=== PATIENT | female | born 1960 | race Caucasian/White ===

== ENCOUNTER 2023-06-15 09:23 | Inpatient (IN) | payer OTHER ==
[~2023-06-15] VITALS: Ht 172.7 cm; Wt 91.3 kg
[~2023-06-15 09:23] MED LIST: ATORVASTATIN CA40 MG PO; CEFADROXIL500 MG PO; ONDANSETRON HYDR4 MG PO; PHENERGAN 25 TA25 MG PO; PROTONIX TR40 M1 PO; SENNA-S 8.6-501 EACH PO; TYLENOL EXTRA500 M2 PO; XARELTO10 MG PO
[2023-06-15] MEDS ORDERED: AMOXICILLIN875 MG PO (09:51)
[2023-06-15] MEDS ORDERED: ALBUTEROL SULF6.7 GM IH (09:52)
[2023-06-15 10:02] LABS: BASO # 0.01 K/mm3 (0.02-0.10); HEMOGLOBIN 15.9 g/dL (12.5-16.0); LYMPH# 1.15 K/mm3 (1.50-4.00); MEAN CELL VOLUME 89 fl (78-100); MEAN CORPUSCULAR HEMOGLOBIN 31 pg (27-31); MEAN CORPUSCULAR HGB CONC 35 g/dL (33-37); NEU # 11.22 K/mm3 (1.40-6.50); PLATELET COUNT 422 K/mm3 (130-400); RED BLOOD COUNT 5.06 M/mm3 (4.10-5.30); RED CELL DISTRIBUTION WIDTH 13.2 % (11.5-14.5); WHITE BLOOD COUNT 13.3 K/mm3 (4.8-10.8)
[2023-06-15 10:14] LABS: ALBUMIN 4.3 g/dL (3.5-5.0)
[2023-06-15 10:15] LABS: CALCIUM 10.2 mg/dL (8.3-10.5)
[2023-06-15 10:17] LABS: TOTAL PROTEIN 7.4 g/dL (6.4-8.3)
[2023-06-15 10:18] LABS: TOTAL BILIRUBIN 0.6 mg/dL (0.2-1.2)
[2023-06-15 10:20] LABS: D-DIMER 0.44 mg/L FEU (0.15-0.50)
[2023-06-15 11:54] LABS: URINE APPEARANCE CLEAR (CLEAR); URINE COLOR YELLOW (YELLOW); URINE GLUCOSE NEGATIVE (NEGATIVE); URINE KETONE 4 (NEGATIVE); URINE PROTEIN(semi-quant) 2+ (NEGATIVE)
[2023-06-15 11:55] LABS: URINE BILIRUBIN 2+ (NEGATIVE); URINE BLOOD NEGATIVE (NEGATIVE); URINE LEUKOCYTE ESTERASE NEGATIVE (NEGATIVE); URINE NITRATE NEGATIVE (NEGATIVE); URINE WBC 0-1 /hpf (0-3)
[2023-06-15 14:21] VITALS: BP 132/72
[2023-06-15 18:03] LABS: CALCIUM 8.9 mg/dL (8.3-10.5)
--- NOTE | 2023-06-15 18:12 | NUR ---
Marleny Young APRN notified of critical lab values.
--- NOTE | 2023-06-15 18:17 | NUR ---
LR discontinued at this time per Marleny Young, [employer]
[2023-06-15 18:19] VITALS: BP 128/77
--- NOTE | 2023-06-15 19:00 | NUR ---
Report received from Nannette BRYAN.
--- NOTE | 2023-06-15 20:00 | NUR ---
Patient resting in bed and awakened for meds. Assisted 1 CGA without device to the bathroom and voids. Reports weakness and some shortness of breath with short distance. Undresses self slowly and nurse assists with sock on left foot "hx of left hip replacement". Alert and oriented x 4. Affect flat. Fall chart reviewed and updated with patient. Bed alarm on. Denies pain or needs at this time. Scheduled meds reviewed and given. Repeat BMP at 2300. IV potassium and fluids infuse without problems. Denies dizziness.
[2023-06-15 21:42] VITALS: BP 100/60
[2023-06-15 23:47] LABS: CALCIUM 8.9 mg/dL (8.3-10.5)
--- NOTE | 2023-06-15 23:58 | NUR ---
Mable HERRERA notified of critical carbon dioxide level of 14 and potassium level 3.3.
--- NOTE | 2023-06-16 00:15 | NUR ---
Patients accu check 76. Snack of vanilla ensure encouraged and given.
[2023-06-16 02:00] VITALS: BP 128/71
--- NOTE | 2023-06-16 05:15 | NUR ---
Patient given coke for snack and took several sips. Accu check 73.
[2023-06-16 05:29] VITALS: BP 118/57
--- NOTE | 2023-06-16 05:38 | NUR ---
Patient now resting soundly with eyes closed.
--- NOTE | 2023-06-16 06:02 | NUR ---
Mable HERRERA notified of patients last accu check of 73.
[2023-06-16 07:41] LABS: BASO # 0.01 K/mm3 (0.02-0.10); EOS # 0.01 K/mm3 (0.04-0.40); EOS % 0.1 % (1.0-5.0); HEMATOCRIT 37.9 % (37.0-47.0); HEMOGLOBIN 13.3 g/dL (12.5-16.0); LYMPH# 1.53 K/mm3 (1.50-4.00); MEAN CELL VOLUME 89 fl (78-100); MEAN CORPUSCULAR HEMOGLOBIN 31 pg (27-31); MEAN CORPUSCULAR HGB CONC 35 g/dL (33-37); MEAN PLATELET VOLUME 9.5 fl (7.4-10.4); MONO # 0.72 K/mm3 (0.20-0.80); NEU # 8.56 K/mm3 (1.40-6.50); PLATELET COUNT 368 K/mm3 (130-400); RED BLOOD COUNT 4.24 M/mm3 (4.10-5.30); RED CELL DISTRIBUTION WIDTH 13.6 % (11.5-14.5); WHITE BLOOD COUNT 10.9 K/mm3 (4.8-10.8)
[2023-06-16 08:08] LABS: ALBUMIN 3.6 g/dL (3.5-5.0)
[2023-06-16 08:09] LABS: CALCIUM 8.8 mg/dL (8.3-10.5)
[2023-06-16 08:12] LABS: TOTAL BILIRUBIN 0.4 mg/dL (0.2-1.2)
--- NOTE | 2023-06-16 08:30 | NUR ---
Joy Pepe PA-C notified of critical lab values.
[2023-06-16 10:01] VITALS: BP 114/72
[2023-06-16 11:13] LABS: URINE APPEARANCE CLOUDY (CLEAR); URINE COLOR YELLOW (YELLOW)
[2023-06-16 11:14] LABS: URINE BILIRUBIN 2+ (NEGATIVE); URINE BLOOD TRACE-INTACT (NEGATIVE); URINE GLUCOSE NEGATIVE (NEGATIVE); URINE KETONE 4+ (NEGATIVE); URINE LEUKOCYTE ESTERASE NEGATIVE (NEGATIVE); URINE NITRATE NEGATIVE (NEGATIVE); URINE PROTEIN(semi-quant) 1+ (NEGATIVE); URINE WBC >50 /hpf (0-3)
[2023-06-16 11:16] LABS: URINE MUCUS PRESENT (NOT PRESENT)
[2023-06-16 14:05] VITALS: BP 138/74
[2023-06-16 17:26] VITALS: BP 121/72
[2023-06-16 18:44] LABS: ALBUMIN 3.2 g/dL (3.5-5.0)
[2023-06-16 18:45] LABS: CALCIUM 8.5 mg/dL (8.3-10.5)
[2023-06-16 18:47] LABS: TOTAL PROTEIN 5.3 g/dL (6.4-8.3)
[2023-06-16 18:48] LABS: TOTAL BILIRUBIN 0.4 mg/dL (0.2-1.2)
[2023-06-16 21:59] VITALS: BP 129/78
[2023-06-17 01:17] VITALS: BP 106/67
[2023-06-17 05:36] VITALS: BP 119/69
[2023-06-17 05:49] LABS: CALCIUM 8.3 mg/dL (8.3-10.5); TOTAL BILIRUBIN 0.4 mg/dL (0.2-1.2)
--- NOTE | 2023-06-17 07:00 | NUR ---
RESUMED CARE FROM RANDI PARIKH.
[2023-06-17 10:15] VITALS: BP 112/72
--- NOTE | 2023-06-17 10:27 | NUR ---
Patient resting in chair with iv fluids infusing. denies pain, assessment completed, potasssium level reported to joseph CARMICHAEL, provider in to see patient at this time. Call light in reach
[2023-06-17 10:40] LABS: BASO # 0.01 K/mm3 (0.02-0.10); EOS # 0.03 K/mm3 (0.04-0.40); EOS % 0.4 % (1.0-5.0); HEMATOCRIT 36.1 % (37.0-47.0); HEMOGLOBIN 12.7 g/dL (12.5-16.0); LYMPH# 1.49 K/mm3 (1.50-4.00); MEAN CELL VOLUME 90 fl (78-100); MEAN CORPUSCULAR HEMOGLOBIN 32 pg (27-31); MEAN CORPUSCULAR HGB CONC 35 g/dL (33-37); MEAN PLATELET VOLUME 9.7 fl (7.4-10.4); MONO # 0.57 K/mm3 (0.20-0.80); NEU # 5.67 K/mm3 (1.40-6.50); PLATELET COUNT 210 K/mm3 (130-400); RED BLOOD COUNT 4.03 M/mm3 (4.10-5.30); RED CELL DISTRIBUTION WIDTH 13.6 % (11.5-14.5); WHITE BLOOD COUNT 7.8 K/mm3 (4.8-10.8)
[2023-06-17 10:47] LABS: ALBUMIN 3.1 g/dL (3.5-5.0)
[2023-06-17 10:49] LABS: CALCIUM 8.6 mg/dL (8.3-10.5)
[2023-06-17 10:50] LABS: TOTAL PROTEIN 5.3 g/dL (6.4-8.3)
[2023-06-17 10:52] LABS: TOTAL BILIRUBIN 0.4 mg/dL (0.2-1.2)
[2023-06-17 10:57] LABS: MAGNESIUM 1.53 mg/dL (1.60-2.60)
--- NOTE | 2023-06-17 12:03 | NUR ---
D5 FLUIDS SWITCHED TO R FOREARM. RN NOTIFIED.
[2023-06-17 13:46] VITALS: BP 100/68
[2023-06-17 17:49] VITALS: BP 137/73
--- NOTE | 2023-06-17 19:24 | NUR ---
REPORT TO RANDI HOFFMAN.
--- NOTE | 2023-06-17 19:50 | NUR ---
ENTERED PT ROOM WITH MEDICATION PT REQUEST THAT THE LARGE PILLS BE BROKE IN HALF. CARAFATE AND PHOSPHORUS WERE BROKE IN 1/2 FOR PT. AFTER 10 MINUTES PT WAS ABLE TO SWALLOW 1 LIPITOR AND 1/2 OF THE BROKEN PILLS. PT IS OBSERVED GAGGING AND SPITTING OUT WATER BUT NOT THE MEDICATIONS. PT THEN REQUEST PILLS BE CRUSHED.
--- NOTE | 2023-06-17 20:00 | NUR ---
PT HAS BEEN TRYING TO SWALLOW MEDS AFTER 10 MINUTES PT HAS SWALLOWED 1 LIPITOR AND 1/2 OF ANOTHER PILL. PT REQUEST MEDS BE CRUSHED AND BE PUT IN APPLESAUCE. MEDS WERE CRUSHED AND MIXED WITH A SMALL AMOUT OF APPLESAUCE. pt TAKES MEDICATION AND PUT MORE APPLESAUCE IN WITH THE PILLS. pT TAKES 2-3 BITES AND THE STARTS TO MAKE GAGING SOUNDS AND THE STARTES SPITTING OUT WATER AND PILLS AFTER 10 MINUTES OF TRYING TO TAKE MEDICATION PT THEN STATES SHE CAN NO LONGER TRY TO TAKE THESE PILLS SHE "HAS HAD TOO MANY PILLS TODAY", SHE STATES "NEWTON TOLD ME I DIDNT HAVE TO TAKE ANYMORE PILLS TODAY." ATTEMP-JUNITO TO EXPLAINE THAT MEDICATIONS WERE ORDERED MULTIPUL TIMES A DAY AND THAT IS WHY IT SEEMS SHE HAS HAD SO MANY TODAY. PT REFUSES TO TAKE ANY MORE MEDICATIONS AT THIS TIME, AND REQUEST THEY JUST BE "THROWN AWAY" BECAUSE SHE " HAS HAD ENOUGH"
[2023-06-17 21:36] VITALS: BP 140/81
[2023-06-17 22:07] LABS: MAGNESIUM 1.81 mg/dL (1.60-2.60)
--- NOTE | 2023-06-18 01:18 | NUR ---
PT REQUEST TYLENOL FOR BILATERAL FEET PAIN, REPORTS PAIN A NUMB TINGLING FEELING. ATTEMPTED TO EDUCATE PT ON DIFFERENT STRECHS AND MOVEMENT SHE COULD DO LAYING IN BED TO ASSIT WITH THE DISCOMFORT. PT STATES SHE JUST WANTS TYLENOL. EXPLAINED TO PT THAT TYLNOL WOULD BE PROVIDED BUT MOVING HER FEET MIGHT HELP WITH THE PAIN ALSO. PT WAS GIVEN TYLENOL 650MG THAT SHE WAS ABLE TO SWALLOW THE PILLS WITHOUT ANY DIFFICULTIES.
[2023-06-18 01:45] VITALS: BP 117/74
--- NOTE | 2023-06-18 02:10 | NUR ---
PT REPORTS PAIN IS GETTING BETTER.
--- NOTE | 2023-06-18 03:35 | NUR ---
WHILE IN ROOM HANGING A NEW BAG OF IV FLUIDS PT REPORTS PAIN WAS GONE WHILE SHE WAS ASLEEP BUT NOW THAT SHE IS AWAKE HER PAIN IS STARTING TO COME BACK. REASSURED PT THAT WHEN SHE IS ABLE TO HAVE MORE TYLENOL IT WOULD BE PROVIDED IF SHE STILL NEEDED IT.
[2023-06-18 05:31] VITALS: BP 111/70
--- NOTE | 2023-06-18 05:45 | NUR ---
CARAFATE WAS GIVEN OFFERED PT TO MAKE IT INTO A SLURRY SO SHE DIDNT HAVE TO TRY TO SWALLOW THE 2 HALF OF THE PILL. PT REFUSED AND STATED THAT SHE WOULD SWALLOW THE PILLS.
--- NOTE | 2023-06-18 10:00 | NUR ---
Pt sitting up in the chair, reports bilateral foot shooting pain since yesterday. Pt reports that the tylenol given last night "took the edge off" asked if she would like to try another medication patient reports that she "will think about it." Pt sitting in recliner watching TV. Pt reports that she can swallow though sometimes it feels like pills are stuck, but that the problem is more so that she gets nauseous if she eats or drinks anything and medications havent helped. ERP notified and aware. Call light within reach. Denies other needs at this time. Pt declines meal supplement at this time, reports that she will try this afternoon.
[2023-06-18 10:10] VITALS: BP 113/73
--- NOTE | 2023-06-18 11:24 | NUR ---
Warm blanket offered and accepted. Call light in reach. Denies other needs at this time.
--- NOTE | 2023-06-18 14:00 | NUR ---
PER TECH CRYSTAL PT CONSUMED 67ML OF SHAKE.
[2023-06-18 14:15] VITALS: BP 109/70
--- NOTE | 2023-06-18 15:38 | NUR ---
fluids and potassium infusion stopped to allow patient to shower per request. ERP notifed pt reports burning for potassium. Due to incompatability of D5LR will run potassium infusion and then continue fluids afterwards per ERP verbal order.
[2023-06-18] MEDS ORDERED: NORVASC 10MG10 MG PO (15:50)
[2023-06-18] MEDS ORDERED: ASPIRIN E.C. 8181 MG PO (15:52)
[2023-06-18] MEDS ORDERED: CELECOXIB100 M1 PO (15:53)
[2023-06-18] MEDS ORDERED: CARBIDOPA AND L1 OD1 PO (15:53)
[2023-06-18] MEDS ORDERED: VITAMIN D325 MC7 PO (15:54)
[2023-06-18] MEDS ORDERED: [UNRECOGNIZED DRUG - OTHER] PO (15:55)
[2023-06-18] MEDS ORDERED: FEXOFENADINE H180 M1 PO (15:55)
[2023-06-18] MEDS ORDERED: MIRALAX17 GM PO (15:56)
[2023-06-18] MEDS ORDERED: MULTIVITAMIN1 EACH PO (15:56)
[2023-06-18] MEDS ORDERED: OMEPRAZOLE20 M3 PO (15:57)
[2023-06-18] MEDS ORDERED: OMEGA-31000 M1 PO (15:57)
[2023-06-18] MEDS ORDERED: DESYREL 100MG100 MG PO (15:58)
[2023-06-18] MEDS ORDERED: TOPAMAX25 MG PO (15:58)
[2023-06-18] MEDS ORDERED: TRIAMCINOLONE ACETON (16:00)
[2023-06-18] MEDS ORDERED: TYLENOL325 M1 PO (16:00)
[2023-06-18] MEDS ORDERED: VOLTAREN 1% (16:02)
--- NOTE | 2023-06-18 17:00 | NUR ---
Pt reports feeling better after a shower, pt reports that the burning has subsided. This RN notifies patient that we need a UA the next time she needs to urinate.
[2023-06-18 18:15] VITALS: BP 124/78
--- NOTE | 2023-06-18 18:39 | NUR ---
MEAL REPLACMENT SHAKE OFFERED TO PATIENT.
--- NOTE | 2023-06-18 18:40 | NUR ---
PT SITTING IN CHAIR, WATCHING TV AT THIS TIME, CALL LIGHT WITHIN REACH.
--- NOTE | 2023-06-18 18:58 | NUR ---
REPORT TO RANDI JACQUES
--- NOTE | 2023-06-18 19:00 | NUR ---
Report received from Aparna BRYAN.
[2023-06-18 19:22] LABS: CALCIUM 8.6 mg/dL (8.3-10.5)
[2023-06-18 20:52] LABS: PH-URINE 5.5 (5.0 - 8.0); URINE APPEARANCE SLIGHTLY CLOUDY (CLEAR); URINE BILIRUBIN 2+ (NEGATIVE); URINE COLOR DARK YELLOW (YELLOW); URINE GLUCOSE NEGATIVE (NEGATIVE); URINE KETONE 2+ (NEGATIVE); URINE NITRATE NEGATIVE (NEGATIVE); URINE PROTEIN(semi-quant) 1+ (NEGATIVE)
[2023-06-18 20:53] LABS: URINE BLOOD TRACE-INTACT (NEGATIVE); URINE LEUKOCYTE ESTERASE NEGATIVE (NEGATIVE)
[2023-06-18 20:54] LABS: URINE MUCUS PRESENT (NOT PRESENT)
--- NOTE | 2023-06-18 21:00 | NUR ---
Patient resting in bed. Reviewed new orders for potassium po/IV. IVF's DC'd. HS meds reviewed and given. Takes 1 tablet slowly at a time without problems. Tylenol given per request for bilateral feet and toe pain. Reviewed Mable HERRERA will order her tramadol if requires stronger pain med. Reviewed with Mable HERRERA hung NS at 50mls to run concurrent with IV potassium due to patient report of burning at IV site.
[2023-06-18 21:51] VITALS: BP 120/78
--- NOTE | 2023-06-19 | NUR ---
Rests with eyes closed.
[2023-06-19 01:40] VITALS: BP 108/58
--- NOTE | 2023-06-19 02:30 | NUR ---
Reports bilateral feet pain 10/10 again and requests tylenol. Given. Denies need for stronger med at this time and will report need to nurse.
--- NOTE | 2023-06-19 04:17 | NUR ---
Patient awake repositions self. Denies pain.
[2023-06-19 06:07] VITALS: BP 121/72
--- NOTE | 2023-06-19 06:21 | NUR ---
Patient resting awake in bed visiting on phone. Reports 8/ pain to feet and requests tylenol. Given. Has had kpad to feet legs off and on through the night and states it helps. States "yes I did" to getting sleep this noc.
[2023-06-19 07:44] LABS: ALBUMIN 2.9 g/dL (3.5-5.0)
[2023-06-19 07:45] LABS: CALCIUM 8.2 mg/dL (8.3-10.5)
[2023-06-19 07:47] LABS: TOTAL PROTEIN 4.8 g/dL (6.4-8.3)
[2023-06-19 07:48] LABS: TOTAL BILIRUBIN 0.3 mg/dL (0.2-1.2)
[2023-06-19 07:54] LABS: MAGNESIUM 1.6 mg/dL (1.60-2.60)
[2023-06-19 09:57] VITALS: BP 97/53
--- NOTE | 2023-06-19 13:35 | NUR ---
PT BACK FROM RADIOLOGY BARIUM SWALLOW STUDY. TOLERATED WELL, SPEECH THERAPY AT BEDSIDE.
[2023-06-19 14:20] VITALS: BP 107/62
[2023-06-19 18:23] VITALS: BP 127/76
--- NOTE | 2023-06-19 19:00 | NUR ---
Report received from Malena Arnold RN.
--- NOTE | 2023-06-19 20:00 | NUR ---
Patient CGA with walker to the bathroom. Gait steady but awkward. Voids and does HS care at sink. HS meds all reviewed and taken 1 at a time without problems along with tylenol for feet and toe pain. BLE elevated. Alert and oriented x 4.
[2023-06-19 21:35] VITALS: BP 117/53
[2023-06-20 02:41] VITALS: BP 111/77
[2023-06-20 05:25] VITALS: BP 112/64
--- NOTE | 2023-06-20 06:24 | NUR ---
PATIENT REPORTS SHE SLEPT WELL FOLLOWING NEURONTIN GIVEN EARLIER.
--- NOTE | 2023-06-20 07:00 | NUR ---
Report received from RANDI Guy.
[2023-06-20 09:34] LABS: ALBUMIN 3.9 g/dL (3.5-5.0)
[2023-06-20 09:36] LABS: CALCIUM 9.2 mg/dL (8.3-10.5)
[2023-06-20 09:37] LABS: TOTAL PROTEIN 5.7 g/dL (6.4-8.3)
[2023-06-20 09:39] LABS: TOTAL BILIRUBIN 0.4 mg/dL (0.2-1.2)
[2023-06-20 09:47] LABS: BASO # 0.01 K/mm3 (0.02-0.10); EOS # 0.22 K/mm3 (0.04-0.40); EOS % 4.2 % (1.0-5.0); HEMATOCRIT 43.8 % (37.0-47.0); LYMPH# 1.56 K/mm3 (1.50-4.00); MEAN CELL VOLUME 92 fl (78-100); MEAN CORPUSCULAR HEMOGLOBIN 31 pg (27-31); MEAN CORPUSCULAR HGB CONC 34 g/dL (33-37); MEAN PLATELET VOLUME 9.1 fl (7.4-10.4); MONO # 0.51 K/mm3 (0.20-0.80); NEU # 2.94 K/mm3 (1.40-6.50); PLATELET COUNT 290 K/mm3 (130-400); RED BLOOD COUNT 4.77 M/mm3 (4.10-5.30); RED CELL DISTRIBUTION WIDTH 13.6 % (11.5-14.5); WHITE BLOOD COUNT 5.3 K/mm3 (4.8-10.8)
--- NOTE | 2023-06-20 10:00 | NUR ---
Assessment charted. Pt resting in chair at s sarahy of bed, pain to feet bilaterally 4/10 but wants to wait until after lunch to take some gabapentin. Lungs diminished at bases. States she feels a bit confused today but oriented. Denies needs, will continue to monitor.
[2023-06-20 10:18] VITALS: BP 110/77
--- NOTE | 2023-06-20 12:18 | NUR ---
Called PT/OT and asked to evaluate patient, orders placed on Friday and it is now Friday. Per OT note, not evaluated due to low potassium levels. AMOL Stone notified.
[2023-06-20] MEDS ORDERED: TYLENOL PM EXTR1 TA1 PO (13:14)
[2023-06-20 13:58] VITALS: BP 132/76
[2023-06-20 18:04] VITALS: BP 127/78
--- NOTE | 2023-06-20 18:54 | NUR ---
Will give report to nightshift nurse who will resume care.
[2023-06-20 22:00] VITALS: BP 142/64
--- NOTE | 2023-06-20 22:35 | NUR ---
PT WAS IN RECLINER. REPORTED THAT HER FEET WERE HURTING, 8/10. MEDICATIONS TAKEN PO WITHOUT DIFFICULTY. ASSESSMENT COMPLETE. IV FLUSHED, STATED THAT THERE WAS SLIGHT BURNING WITH IT. COBAN APPLIED. CALL LIGHT WITHIN REACH.
[2023-06-21 02:16] VITALS: BP 100/59
[2023-06-21 05:52] VITALS: BP 100/66
[2023-06-21 09:50] VITALS: BP 108/71
--- NOTE | 2023-06-21 10:00 | NUR ---
PT FOUND UPSET THIS MORNING. REPORTS THAT SHE WANTS TO KNOW A UPDATE ON HER INSURANCE SITUATION AND IF THE STAY IS COVERED. THIS RN REACHES OUT TO [facility], REPORTS UNKNOWN AT THIS TIME DUE TO INSURANCE STATES STILL PENDING APPROVAL. LARA TERESA, CONTACTED ABOUT SITUATION. PT NOTIFIED OF CURRENT STATUS. PT TEARFUL, REPORTS THAT SHE CANT AFFORD OUT OF POCKET COSTS AND THAT SHE WOULD LIKE TO LEAVE. THIS RN REPORTS CONCERN OF MAKING IT TO APT ON FRIDAY FOR EGD PT REPORTS THAT SHE DOES NOT HAVE A RIDE. PT REPORTS THAT HER SISTER IS ON THE WAY AND MIGHT BE ABLE TO HELP. THIS RN ALSO EXPRESSES CONCERN ABOUT FALLING IF PT FEELS WEAK DUE TO INADEQUATE INTAKE AND IF CHOOSES TO LEAVE THE HOSPTIAL TO BE VERY CAREFUL AND SAFE WITH AMBULATION, PT VERBALIZES UNDERSTANDING. ERP NOTIFIED OF SITUATION AND TO COME TO BEDSIDE TO SPEAK WITH PT.
--- NOTE | 2023-06-21 11:54 | NUR ---
ERP AT BEDSIDE SPEAKING TO PATIENT AND SISTER.
--- NOTE | 2023-06-21 12:05 | NUR ---
ERP RETURNS TO ROOM AFTER MAKING PHONE CALLS TO SOCIAL WORK.L
[2023-06-21] MEDS ORDERED: GABAPENTIN TAB600 MG PO (12:11)
[2023-06-21] MEDS ORDERED: CARAFATE 1GM1 G PO (12:11)
[2023-06-21] MEDS ORDERED: PANTOPRAZOLE SO40 MG PO (12:12)
[2023-06-21] MEDS ORDERED: Theragran PO (12:14)
[2023-06-21] MEDS ORDERED: B-1100 M1 PO (12:14)
[2023-06-21] MEDS ORDERED: FOLIC ACID1 MG PO (12:14)
[2023-06-21] MEDS ORDERED: POTASSIUM CHLO20 ME3 PO (12:27)
--- NOTE | 2023-06-21 13:03 | NUR ---
ALL DISCHARGE, MEDICATION, AND FOLLOW UP INSTRUCTIONS REVIEWED WITH PATIENT, VERBALIZES UNDERSTANDING. PT DENIES ANY ADDITIONAL QUESTIONS AT THIS TIME. PT BELONGINGS PACKED PER PT AND TECH AND READY FOR DISCHARGE. ALL BELONGINGS TO BE TAKEN UPON DISCHARGE. AWAITING PTS SISTER FOR TRANSPORT FROM THE FACILITY AT THIS TIME. PT NOTIFIED OF INSTRUCTIONS TO CHECK IN AT 1045 FRIDAY MORNING FOR EGD AND TO REMAIN NPO OF ALL FLUIDS/FOOD/MEDS AFTER MIDNIGHT TOMORROW NIGHT IN PREPERATION FOR THE EGD.
--- NOTE | 2023-06-21 13:18 | NUR ---
PT SISTER RETURNES, PT WHEELED OUT TO POV FOR DISCHARGE.
== END 2023-06-21 13:19 | disposition home or self-care (01) | DRG 922 ==
LOC: ED 09:23 → MED/SURG 12:17
PROVIDERS: Nurse Practitioner; Physician Assistant; ADMIT Family Medicine
DX: T73.0XXA Starvation, initial encounter (principal); E43 Unspecified severe protein-calorie malnutrition; J18.9 Pneumonia, unspecified organism; E87.6 Hypokalemia; E83.42 Hypomagnesemia; E83.39 Other disorders of phosphorus metabolism; K59.09 Other constipation; R63.0 Anorexia; R63.4 Abnormal weight loss; E86.0 Dehydration; X58.XXXA Exposure to other specified factors, initial encounter; Z96.642 Presence of left artificial hip joint; Z90.49 Acquired absence of other specified parts of digestive tract
CPT/HCPCS: C9113; J0456; J0696; J2405; J3411; J3475; J3480; J3490; J7030; J7042; J7050; J7120; J7121; P9047; Q9967

== ENCOUNTER → 2023-06-23 | Day surgery (SDC) | payer OTHER ==
[~2023-06-23] MED LIST changes: +ALBUTEROL SULF6.7 GM IH; +AMOXICILLIN875 MG PO; +ASPIRIN E.C. 8181 MG PO; +B-1100 M1 PO; +CARAFATE 1GM1 G PO; +CARBIDOPA AND L1 OD1 PO; +CELECOXIB100 M1 PO; +DESYREL 100MG100 MG PO; +FEXOFENADINE H180 M1 PO; +FOLIC ACID1 MG PO; +GABAPENTIN TAB600 MG PO; +MIRALAX17 GM PO; +MULTIVITAMIN1 EACH PO; +NORVASC 10MG10 MG PO; +OMEGA-31000 M1 PO; +OMEPRAZOLE20 M3 PO; +PANTOPRAZOLE SO40 MG PO; +POTASSIUM CHLO20 ME3 PO; +TOPAMAX25 MG PO; +TRIAMCINOLONE ACETON; +TYLENOL PM EXTR1 TA1 PO; +TYLENOL325 M1 PO; +Theragran PO; +VITAMIN D325 MC7 PO; +VOLTAREN 1%; +[UNRECOGNIZED DRUG - OTHER] PO
== END ==
LOC: MSO 07:30
DX: K29.70 Gastritis, unspecified, without bleeding (principal); K31.89 Other diseases of stomach and duodenum; E78.5 Hyperlipidemia, unspecified
CPT/HCPCS: 00731; J2704; J3010; J7120

== ENCOUNTER → 2023-06-26 | Outpatient (CLI) | payer OTHER ==
[2023-06-26 14:53] LABS: HEMATOCRIT 43.1 % (37.0-47.0); HEMOGLOBIN 14.2 g/dL (12.5-16.0); MEAN PLATELET VOLUME 9.1 fl (7.4-10.4); RED BLOOD COUNT 4.49 M/mm3 (4.10-5.30); WHITE BLOOD COUNT 8.2 K/mm3 (4.8-10.8)
[2023-06-26 15:00] LABS: ALBUMIN 3.7 g/dL (3.5-5.0)
[2023-06-26 15:02] LABS: CALCIUM 8.9 mg/dL (8.3-10.5)
[2023-06-26 15:05] LABS: TOTAL BILIRUBIN 0.4 mg/dL (0.2-1.2)
== END ==
LOC: LAB 14:09
PROVIDERS: Family Medicine
DX: R62.7 Adult failure to thrive (principal); M79.89 Other specified soft tissue disorders

== ENCOUNTER → 2023-07-10 | Outpatient (CLI) | payer OTHER ==
[2023-07-10 09:15] LABS: ALBUMIN 3.9 g/dL (3.5-5.0)
[2023-07-10 09:17] LABS: CALCIUM 9.2 mg/dL (8.3-10.5)
[2023-07-10 09:18] LABS: TOTAL PROTEIN 6.2 g/dL (6.4-8.3)
[2023-07-10 09:20] LABS: TOTAL BILIRUBIN 0.5 mg/dL (0.2-1.2)
[2023-07-10 09:24] LABS: MAGNESIUM 1.76 mg/dL (1.60-2.60)
== END ==
LOC: LAB 08:39
PROVIDERS: Family Medicine
DX: R62.7 Adult failure to thrive (principal)

== ENCOUNTER 2023-09-25 12:15 | Inpatient (IN) | payer OTHER ==
[~2023-09-25] VITALS: Ht 170.2 cm; Wt 71.6 kg
[2023-09-25] MEDS ORDERED: LEXAPRO 10MG10 MG PO (14:23)
[2023-09-25] MEDS ORDERED: LASIX20 M1 PO (14:24)
[2023-09-25] MEDS ORDERED: [UNRECOGNIZED DRUG - OTHER] OP (14:25)
[2023-09-25] MEDS ORDERED: MIRTAZAPINE7.5 M1 PO (14:25)
[2023-09-25] MEDS ORDERED: ONDANSETRON HYDR4 MG PO (14:26)
[2023-09-25] MEDS ORDERED: NEURONTIN300 M1 PO (14:36)
[2023-09-25] MEDS ORDERED: TOBRAMYCIN 5 ML5 ML OP (14:37)
[2023-09-25 15:02] LABS: BASO # 0.01 K/mm3 (0.02-0.10); HEMATOCRIT 41.5 % (37.0-47.0); HEMOGLOBIN 14.3 g/dL (12.5-16.0); MEAN CELL VOLUME 94 fl (78-100); MEAN CORPUSCULAR HEMOGLOBIN 33 pg (27-31); MEAN CORPUSCULAR HGB CONC 35 g/dL (33-37); MEAN PLATELET VOLUME 9.1 fl (7.4-10.4); MONO # 0.64 K/mm3 (0.20-0.80); NEU # 7.68 K/mm3 (1.40-6.50); PLATELET COUNT 453 K/mm3 (130-400); RED CELL DISTRIBUTION WIDTH 14.1 % (11.5-14.5); WHITE BLOOD COUNT 9.4 K/mm3 (4.8-10.8)
[2023-09-25 15:10] VITALS: BP 127/57
[2023-09-25 15:20] LABS: ALBUMIN 4.5 g/dL (3.4-4.8)
[2023-09-25 15:21] LABS: CALCIUM 10.5 mg/dL (8.3-10.5)
[2023-09-25 15:22] LABS: TOTAL PROTEIN 7.5 g/dL (6.2-8.1)
[2023-09-25 15:24] LABS: TOTAL BILIRUBIN 0.7 mg/dL (0.2-1.2)
[2023-09-25 15:29] LABS: MAGNESIUM 2.05 mg/dL (1.60-2.60)
--- NOTE | 2023-09-25 15:37 | NUR ---
CRITICAL LAB VALUES REPORTED TO JAVIER SWEET.
[2023-09-25] MEDS ORDERED: Potassium Chloride 100 ML IV SCH (15:45)
[2023-09-25] MEDS ORDERED: Thiamine 100 MG/ML 2 ML VIAL IV SCH (15:46)
[2023-09-25] MEDS ORDERED: Dextrose 50% Water 25 GM/50 ML SYRINGE IV PRN (16:30)
[2023-09-25] MEDS ORDERED: Dextrose (Glucose) 15 GM (4 x 3.75 GM) Chewable TAB PACK PO PRN (16:30)
[2023-09-25] MEDS ORDERED: Glucagon 1 MG VIAL IM PRN (16:30)
--- NOTE | 2023-09-25 16:38 | NUR ---
Received consult for initiation of enteral feeds via NG tube due to significant weight loss and inability to tolerate PO intake. Recommended starting with Jevity 1.5 at 10 ml/hr with 30 ml water flush Q4 hours given her high refeeding risk along with prior history of refeeding. Will adjust goal rate based on electrolytes/tolerance to feeds upon follow up 09/26/23. Her K+ is 2.8 and receiving replacement. Phos is 2.6 and mg is 2.0. Her sodium is 149 and receiving a liter of LR. Recommended addition of MVI and 1 mg folic acid daily in addition to daily thiamine. Also recommended recheck of mg and phos along with BMP on 09/26/23. Full nutritional assessment will be completed 09/26/23. --Evie Tucker, JALEEL, LD, CNSC
[2023-09-25] MEDS ORDERED: Insulin Aspart (NovoLOG) SQ SCH (17:00)
--- NOTE | 2023-09-25 20:20 | NUR ---
Pt resting in bed with the TV on, pt wakes when nurse enters room. Pt request to be taken to the bathroom and she ambulates with a steady gait with a walker. Pt deines pain with walking. Pt is able to void without difficulties. Carafate is dissolved in 10 ml of water and Gabapentin was opened and put in small amount of chocolate pudding per pt request. Pt is able to take medications without any problems. Pt asks if she can eat more of the pudding, pt is encouraged to eat as much as she can without making her self sick. Pt is able to eat 1/2 of the pudding. IV Potassium is running 2nd out of 4 bag is running. IV infusing in r upper forearm without problems, pt denies pain with running IV. NG tube continuious feed, pt denies any nausea when asked. Call light in reach of pt if needs arise.
[2023-09-25] MEDS ORDERED: D5NS 1,000 ML IV SCH (20:30)
[2023-09-25] MEDS ORDERED: Sucralfate 1 G TAB PO SCH (21:00)
[2023-09-25] MEDS ORDERED: Gabapentin 300 MG CAP PO SCH (21:00)
[2023-09-25 21:01] VITALS: BP 111/75
[2023-09-25 21:30] LABS: CALCIUM 9.8 mg/dL (8.3-10.5)
--- NOTE | 2023-09-25 21:36 | NUR ---
Recived lab report of CO2=14. Reported to Marleny Young, no new orders recived.
[2023-09-25 22:56] LABS: FOLLICLE STIMULATING HORMONE 52.3 mIU/mL (()); LUTENIZING HORMONE 16.9 mIU/mL (())
[2023-09-25 23:11] LABS: FOLATE (FOLIC ACID) 10.4 ng/mL (2.0-20.0)
[2023-09-26] MEDS ORDERED: Insulin Aspart (NovoLOG) SQ SCH
--- NOTE | 2023-09-26 00:14 | NUR ---
FSBS= 73 no insulin required. Pt denies pain and request a chocolate pudding. Pt denies pain when asked. Call light in reach of pt, she is encouraged to call if assitance is needed, bed aralrm on for safety. NG feeding continues without difficulties.
[2023-09-26 01:36] VITALS: BP 113/74
[2023-09-26 05:55] VITALS: BP 112/70
--- NOTE | 2023-09-26 06:02 | NUR ---
FSBS= 90 no insulin is required. Pt denies pain when asked. Pt reports rest well during the night. Tube feeding running with no complications. Call light in reach of pt. Weight= 150.2 lbs
[2023-09-26] MEDS ORDERED: Mirtazapine 15 MG TAB PO SCH ×2 (09:00→21:00)
[2023-09-26] MEDS ORDERED: Folic Acid 1 MG TAB PO SCH (09:00)
[2023-09-26] MEDS ORDERED: Thiamine 100 MG TAB PO SCH (09:00)
[2023-09-26] MEDS ORDERED: Pantoprazole 40 MG in NS 10 ML IV SCH (09:00)
[2023-09-26 09:15] VITALS: BP 102/60
[2023-09-26] MEDS ORDERED: Cosyntropin 0.25 MG VIAL IV ONE (09:30)
[2023-09-26] MEDS ORDERED: PHENOL MM ONE (09:30)
[2023-09-26] MEDS ORDERED: Ondansetron 4 MG/2 ML VIAL IV PRN (09:30)
--- NOTE | 2023-09-26 10:22 | NUR ---
CORTROSYN GIVEN AT 1015 AND LAB NOTIFIED
[2023-09-26] MEDS ORDERED: Potassium Chloride 100 ML IV SCH (12:45)
[2023-09-26] MEDS ORDERED: SODIUM CHLORIDE IV SCH ×2 (13:15→13:30)
--- NOTE | 2023-09-26 13:24 | NUR ---
Darby lives alone in her own home. Her 2014. She lives near her sister Genie. They speak daily usually twice a day. She does not drink water from her facet. She buys bottled water. 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 She is concerned about paying bills and financially working parttime is not enough money to pay all bills. She would like to consider temporary vs complete disability. She is concerned that since she started working partind she will loose her insurance. Her boss at [employer] has offered her a ride to [facility]. She was wondering about a referral there or to the [facility]. She is in agreement to have Dr. Ojeda place a temporary peg tube for feedings. She is unable to walk more than 3 steps without feeling like she cannot make it to her destination. She feels she is being taken care of very well here at [facility].
[2023-09-26] MEDS ORDERED: NS 500 ML IV SCH (13:30)
[2023-09-26 13:41] VITALS: BP 96/64
--- NOTE | 2023-09-26 14:36 | NUR ---
DIETARY IN TO ASSESS AND ADJUST RATE OF FEED AND FLUSH. ALSO APPROVED FOR PATIENT TO HAVE FULL SUGAR SODA, APPLE SLICE, PUDDING AND POPCICLES. WILL KEEP TRACK OF THESE IN I&O
--- NOTE | 2023-09-26 16:52 | NUR ---
NG TUBE ADVANCED TO 56 CM. FEEDING RUNNING AT 25ML/HR WITH 200CC FLUSH Q4
[2023-09-26 18:15] VITALS: BP 120/73
--- NOTE | 2023-09-26 20:00 | NUR ---
Report received from Mónica BRYAN. Patient rests in bed with Jevity infusing through NG tube at 25 ML/HR via Kangaroo pump. Patient is A/O x4. Denies pain just "discomfort of NG tube". Denies SOA or cough. Reports "weeks" since last BM. States she is passing some gas and BS are active x4 upon ascultation. TELE in place. SR with HR in the 80's. Finished IV K+ at shift change. Labs in AM. INT patent x2 to RAC and RFA. Assessment completed.
[2023-09-26 20:22] LABS: URINE APPEARANCE CLOUDY (CLEAR); URINE COLOR AMBER (YELLOW)
[2023-09-26 20:39] LABS: PH-URINE 6.5 (5.0 - 8.0); URINE BILIRUBIN 2+ (NEGATIVE); URINE GLUCOSE NEGATIVE (NEGATIVE); URINE KETONE 3+ (NEGATIVE); URINE PROTEIN(semi-quant) 1+ (NEGATIVE)
[2023-09-26 20:40] LABS: URINE BLOOD NEGATIVE (NEGATIVE); URINE LEUKOCYTE ESTERASE NEGATIVE (NEGATIVE); URINE MUCUS PRESENT (NOT PRESENT); URINE NITRATE NEGATIVE (NEGATIVE); URINE WBC 0-1 /hpf (0-3)
[2023-09-26 22:54] VITALS: BP 111/69
[2023-09-27] VITALS (8 sets, daily range): BP systolic 84–126; BP diastolic 42–70
--- NOTE | 2023-09-27 02:43 | NUR ---
Complained of H/A, 02/09. Tylenol 650 Mg taken crushed in chocolate pudding. Jevity feeding continues to infuse at 25 Ml/HR.
[2023-09-27] MEDS ORDERED: Acetaminophen 325 MG TAB PO PRN (02:45)
[2023-09-27 06:38] LABS: ALBUMIN 3.4 g/dL (3.4-4.8)
[2023-09-27 06:39] LABS: CALCIUM 9.3 mg/dL (8.3-10.5)
[2023-09-27 06:41] LABS: TOTAL PROTEIN 5.4 g/dL (6.2-8.1)
[2023-09-27 06:42] LABS: TOTAL BILIRUBIN 0.6 mg/dL (0.2-1.2)
[2023-09-27 06:47] LABS: MAGNESIUM 1.52 mg/dL (1.60-2.60)
--- NOTE | 2023-09-27 07:00 | NUR ---
Report to Mónica BRYAN.
--- NOTE | 2023-09-27 07:03 | NUR ---
REPORT FROM JOHN SANDRA
--- NOTE | 2023-09-27 09:30 | NUR ---
NS used to attempt to flush the IV to the right forearm. Blood leaked from the IV site. IV was D/C at this time. There is bruising noted around that IV site. Pt does not have any concerns or questions at this time. I does still have an IV to the right upper arm, flushes with no concerns.
[2023-09-27] MEDS ORDERED: Potassium Bicarbonate/Citrate 20 MEQ Effervescent TAB PO SCH (09:56)
[2023-09-27] MEDS ORDERED: Polyethylene Glycol 3350 Powder 17 GM PACKET PO PRN (10:15)
--- NOTE | 2023-09-27 10:59 | NUR ---
Pt showered with complete assistance from the PRODUCT SAFETY COMPLIANCE LEADER. Pt was unable to wash her body or ther hair without help. Pt seemed confused on how to do these daily living tasks, she stated to the PRODUCT SAFETY COMPLIANCE LEADER "I don't know how to wash my hair." Pt also reports to this nurse and the admitting nurse that she has not had a BM in a while. Mirlax order was obtained, offered to pt educated her that it would be desolved in water and she would have to then drink that water. Pt declines stating she is not able to drink the water. When talking about BM issues with the PRODUCT SAFETY COMPLIANCE LEADER she confirm pt has a sm/md BM this morning without any concern. Will monitor at this time.
[2023-09-27] MEDS ORDERED: Magnesium Oxide 400 MG TAB PO SCH (17:00)
--- NOTE | 2023-09-27 18:13 | NUR ---
Pt BP continues to be low today. Matthew notified and has started pt on NS w/K+ fluid to IV. All together I would say pt has had about 200mL of fluids BESIDES the continious NG feeding/water bolus she is getting. Pt was up ONE time today to use the restroom. Will continue to monitor.
[2023-09-27] MEDS ORDERED: NS & 20mEq KCl 1,000 ML IV SCH (18:15)
--- NOTE | 2023-09-27 19:45 | NUR ---
Report received from Lindy BRYAN. Patient resting supine in bed with HOB elevated 30 degrees. A/O x4. Denies pain except for discomfort from NG tube. Jevity feeding infusing at 25 ML/HR through NG via Kangaroo pump with 200 ML water flush Q 4 hours. IVF infusing NS with 20 KCL at 150 ML/HR, IV site reddened around insertion site, patient denies pain at sight. Instructed to let nurse know if painful or swelling, coolness noted. Assessment completed. Denies wants or needs.
--- NOTE | 2023-09-27 20:05 | NUR ---
States having some nausea after up to BR with [employer]. Zofran given IV. PO HS medications taken whole (large ones broke in half) in pudding per patient request. When finished with pills states she is not taking anymore. Patient has been offered various ways, carafate slurry, pills crushed, states no to each one. Will offer pills in AM.
--- NOTE | 2023-09-27 21:58 | NUR ---
IV site infiltrated. IV stopped at this time. Warm pack applied. INT DC'd cath intact. No available veins noted by this nurse. Patient states she is a "hard stick". RN to to assess, awaiting ER nurse to assess situation. Has received 500 ML of ordered 1000 ML fluids.
--- NOTE | 2023-09-27 23:00 | NUR ---
New INT #20 inserted via sono-site in XIOMY by RN x2 attempts. IVF resumed at this time.
--- NOTE | 2023-09-28 00:55 | NUR ---
2nd IV placed infiltrated. 710 total volume infused. IV stopped at this time.
[2023-09-28 02:42] VITALS: BP 101/66
--- NOTE | 2023-09-28 06:09 | NUR ---
Patient refused Carafate at this time. Earlier was agreeable to take "but later". Offered now and states "I don't want it now, I will take it in a couple of hours.
[2023-09-28 06:15] VITALS: BP 95/49
--- NOTE | 2023-09-28 06:44 | NUR ---
Dr. Castro made aware of low B/P this AM and IV going bad last night.
--- NOTE | 2023-09-28 07:10 | NUR ---
Report to Lindy BRYAN
[2023-09-28 10:10] VITALS: BP 106/71
[2023-09-28 12:00] LABS: ALBUMIN 3.7 g/dL (3.4-4.8)
[2023-09-28 12:01] LABS: CALCIUM 9.3 mg/dL (8.3-10.5)
[2023-09-28 12:03] LABS: TOTAL PROTEIN 5.7 g/dL (6.2-8.1)
[2023-09-28 12:04] LABS: TOTAL BILIRUBIN 0.6 mg/dL (0.2-1.2)
[2023-09-28 12:09] LABS: MAGNESIUM 1.5 mg/dL (1.60-2.60)
[2023-09-28 14:18] VITALS: BP 110/73
[2023-09-28 17:19] VITALS: BP 105/43
--- NOTE | 2023-09-28 20:45 | NUR ---
Report received from Lindy BRYAN. Patient resting supine in bed, with HOB elevated 35 degrees. Jevity feeding infusing via Kangaroo pump at 25 ML/HR through NG tube. Drowsy, oriented x4, forgetful at times, denies pain. Sipping gatorade at bedside. Encourged to increase fluid intake. Refuses Carafate, Phosphous, and eye gtts. Education provided, verbalizes understanding. Takes Remeron and Gabapentin whole, without pudding without difficulty. Assessment completed. Discussed and verbalizes understanding of NPO status after midnight for consult and possible PEG tube placement tomorrow. Denies wants or needs at this time. Bed alarm on. Call light in reach.
[2023-09-28 22:25] VITALS: BP 100/65
--- NOTE | 2023-09-29 00:05 | NUR ---
Tube feeding stopped and all po fluids removed from night table for NPO status, possible PEG tube placement in AM. Rests with eyes closed. Respirations even and non-labored.
[2023-09-29 02:30] VITALS: BP 101/68
[2023-09-29 05:30] LABS: CALCIUM 8.7 mg/dL (8.3-10.5)
[2023-09-29 05:32] LABS: TOTAL PROTEIN 5.1 g/dL (6.2-8.1)
[2023-09-29 05:33] LABS: TOTAL BILIRUBIN 0.5 mg/dL (0.2-1.2)
--- NOTE | 2023-09-29 05:33 | NUR ---
Remains NPO. Rested well. Voided 1 time this shift, 400 ML of dark jason urine. HOB elevated 30 degrees. Denies pain.
[2023-09-29 05:35] VITALS: BP 120/74
[2023-09-29 05:38] LABS: MAGNESIUM 1.47 mg/dL (1.60-2.60)
--- NOTE | 2023-09-29 07:06 | NUR ---
Report to Dorota BRYAN
[2023-09-29 09:04] VITALS: BP 118/74
--- NOTE | 2023-09-29 10:58 | NUR ---
PATIENT REMAINS ON NPO. IV WAS PLACED AND PATIENT IS SCHEDULED FOR EGD AND PEG TUBE PLACEMENT THIS DAY. PATIENT IS LAYING IN BED AT THIS WAITING AWAITING PROCEDURE.
[2023-09-29] MEDS ORDERED: Lidocaine PF 2% (20 MG/ML) 5 ML VIAL ONE (12:22)
[2023-09-29 14:04] VITALS: BP 124/72
[2023-09-29] MEDS ORDERED: oxyCODONE/Acetaminophen 5-325 MG TAB PO ONE (14:30)
[2023-09-29 17:59] VITALS: BP 107/67
--- NOTE | 2023-09-29 18:08 | NUR ---
PATIENT HAD PEG TUBE PLACED TODAY. NO PEG TUBE FEEDINGS UNTIL TOMORROW AM. OK TO USE FOR MEDS AND FLUSH. PATIENT REFUSED MEDS THIS EVENING. DIET ORDERS FOR FULL LIQUIDS. SHE HAD A 1 X ORDER FOR PERCOCET. ICE AND HEAT WERE GIVEN TO HELP WITH PAIN. PROVIDER IN AT THIS TIME TO SPEAK WITH HER REGARDING PAIN. COMPLAINTS OF PAIN AT PLACEMENT SITE. RATES PAIN A 7-10. SHE HAS AN IV IN RIGHT AC. STAFF WILL CONT TO MONITOR.
--- NOTE | 2023-09-29 19:15 | NUR ---
REPORT FROM RANDI FRIAS
--- NOTE | 2023-09-29 20:56 | NUR ---
PATIENT IS A&O X4. EENT CLEAR, LUNGS CTA. BS X4, HR REGULAR NO EDEMA NOTED. NO DRAINAGE NOTED FROM NEW PEG PLACMENTS. PATIENT REFUSING ALL MEDS WITH EXCEPTION OF PAIN MEDS. SHE IS RESTING ON ASSESSMENT, WAKES EASILY. REPORTS THAT SHE IS UP TO TOILET, ABDOMEN IS SORE. CALL LIGHT IN REACH
[2023-09-29 22:07] VITALS: BP 118/78
[2023-09-30] VITALS (7 sets, daily range): BP systolic 91–128; BP diastolic 58–76
[2023-09-30 00:04] LABS: ADRENOCORTICOTROPIC HORMONE 20 pg/mL (5-27)
--- NOTE | 2023-09-30 02:32 | NUR ---
PATIENT UP TO TOILET. C\O NAUSEA AND REQUESTING ZOFRAN. STATES LEFT SHOULDER SORE, THINKS ITS FROM PULLING SELF UP OFF TOILET. DECLINED APAP AT THIS TIME
--- NOTE | 2023-09-30 04:41 | NUR ---
PATIENT UP TO TOILET. REQUESTING APAP FOR SHOULDER ACHE. RATES 11/09
--- NOTE | 2023-09-30 06:10 | NUR ---
PATIENT RESTING IN BED. FSBS BELOW SLIDING SCALE LIMIT AT 130. SHE REFUSED CARAFATE AND PROTONIX. CALL LIGHT IN REACH
--- NOTE | 2023-09-30 19:15 | NUR ---
REPORT FROM RANDI MASON
--- NOTE | 2023-09-30 22:44 | NUR ---
PATIENT RESTING IN BED THIS SHIFT. SHE HAS BEEN UP TO TOILET, AMBULATING WITH WALKER, GAIT BELT AND 1 ASSIST. A&O X 4. EENT CLEAR, MOUTH AND LIP DRY, ENOURAGED TO TAKE SIPS TO MOISTEN MOUTH. ICE CHIP PROVIDED. LUNGS CTA. HR REGULAR, NO EDEMA NOTED. BS X 4. REPORTS PAIN TO PEG TUBS SIDE. SCANT DRAINAGE PRESENT ON GAUZE. MEDS GIVEN THRU BED TUBE PER PATIENT REQUEST. FEEDING DONE, WITH NO RESIDUAL NOTED PRIOR TO FEEDING. ADVISED PATIENT TO KEEP HOB AT 30 DEGREES AFTER FEEDING. TOLERATED WELL. CALL LIGHT IN REACH
--- NOTE | 2023-10-01 05:45 | NUR ---
PATIENT UP TO TOILET, AMBULATING WITH ONE ASSIST, WALKER AND GAIT BELT. PATIENT IS SLOW AND WEAK. LIPS DRY. SHE DID TAKE SOME WATER PO WITH HER PROTONIX. FEEDING DONE AT THIS TIME TO CLUSTER CARES. DRESSING AROUND PEG TUBE CHANGED. SCANT DRAINAGE NOTED. PATIENT FLINCHES WITH DRESSING CHANGE, BUT TOLERATED WELL. CALL LIGHT IN REACH
[2023-10-01 05:59] VITALS: BP 100/67
--- NOTE | 2023-10-01 06:45 | NUR ---
REPORT FROM RANDI FAITH. NURSE REPORTS TUBE FEEDING INITIATED AT 6AM WELL DRESSING CHANGE TO PEG TUBE
--- NOTE | 2023-10-01 06:45 | NUR ---
REPORT GIVEN TO RANDI GLEZ
[2023-10-01 09:28] LABS: HEMATOCRIT 36.4 % (37.0-47.0); HEMOGLOBIN 12.1 g/dL (12.5-16.0); MEAN CELL VOLUME 97 fl (78-100); MEAN CORPUSCULAR HEMOGLOBIN 32 pg (27-31); MEAN CORPUSCULAR HGB CONC 33 g/dL (33-37); MEAN PLATELET VOLUME 9.6 fl (7.4-10.4); PLATELET COUNT 315 K/mm3 (130-400); RED BLOOD COUNT 3.75 M/mm3 (4.10-5.30); RED CELL DISTRIBUTION WIDTH 13.5 % (11.5-14.5); WHITE BLOOD COUNT 16.5 K/mm3 (4.8-10.8)
--- NOTE | 2023-10-01 09:34 | NUR ---
UPON MEDICATION ADMINISTRATION THIS AM, PATIENT REPORTS INCREASED PAIN WITH BOLUS FEEDINGS. NO RESIDUAL NOTED. PATIENT REPORTS PAIN TO SHOULDERS CONTINUES. PATIENT REQUESTING TO TRY CONTINUOUS FEEDINGS AGAIN SHE IS UNABLE TO TOLERATE THE PAIN OF 125ML BOLUS FEEDS. LOWELL BARROSO NOTIFIED AND AWAITING NEW ORDERS.
[2023-10-01 09:37] LABS: ALBUMIN 3.1 g/dL (3.4-4.8); TOTAL PROTEIN 5.7 g/dL (6.2-8.1)
[2023-10-01 09:39] LABS: CALCIUM 9.2 mg/dL (8.3-10.5)
[2023-10-01 09:42] LABS: TOTAL BILIRUBIN 0.8 mg/dL (0.2-1.2)
[2023-10-01 09:43] VITALS: BP 97/60
[2023-10-01 09:52] LABS: MAGNESIUM 1.72 mg/dL (1.60-2.60)
[2023-10-01] MEDS ORDERED: Acetaminophen 325 MG TAB PO PRN (10:00)
[2023-10-01] MEDS ORDERED: NS 1,000 ML IV SCH ×2 (10:00→13:45)
--- NOTE | 2023-10-01 10:05 | NUR ---
UPDATED DR. CARNEY ON PATIENT STATUS AT THIS TIME.
[2023-10-01 10:12] LABS: LYMPHOCYTE 6 % (20-51); MONOCYTE 11 % (3-10); NEUTROPHILS 83 % (42-75)
[2023-10-01 10:13] LABS: HYPOCHROMIA 1+; OVALOCYTES 1+; SCHISTOCYTES 1+
[2023-10-01] MEDS ORDERED: Iohexol 300 - 100 ML VIAL IV ONE (10:37)
--- NOTE | 2023-10-01 11:20 | NUR ---
EXTENSION TUBING BLEW WITH RADIOLOGY ATTEMPT CT WITH CONTRAST. THIS RN REDRESSED IV. DR. CARNEY NOTIFIED AND ORDER CHANGED TO CT WITHOUT AT THIS TIME.
--- NOTE | 2023-10-01 13:10 | NUR ---
PATIENT NOTED TO BE HYPOTENSIVE, DR. CARNEY NOTIFIED. NS RUNNING 125ML/HR CHANGED TO BOLUS. NEW ORDERS OBTAINED.
[2023-10-01 13:28] VITALS: BP 78/48
--- NOTE | 2023-10-01 14:00 | NUR ---
ORDERS SENT TO [facility]. PATIENT TO HAVE PICC LINE PLACEMENT TOMORROW AT 0900. [facility] TO SET UP TRANSPORTATION.
[2023-10-01 14:34] VITALS: BP 108/50
[2023-10-01 15:11] LABS: VITAMIN B1 182.2 nmol/L (())
[2023-10-01 17:13] LABS: URINE APPEARANCE CLOUDY (CLEAR); URINE COLOR YELLOW (YELLOW)
[2023-10-01 17:14] LABS: PH-URINE 8.5 (5.0 - 8.0); URINE BILIRUBIN NEGATIVE (NEGATIVE); URINE BLOOD NEGATIVE (NEGATIVE); URINE GLUCOSE NEGATIVE (NEGATIVE); URINE KETONE NEGATIVE (NEGATIVE); URINE LEUKOCYTE ESTERASE 1+ (NEGATIVE); URINE NITRATE NEGATIVE (NEGATIVE); URINE PROTEIN(semi-quant) 1+ (NEGATIVE)
[2023-10-01 17:15] LABS: URINE WBC 16-30 /hpf (0-3)
[2023-10-01 17:26] VITALS: BP 90/50
[2023-10-01] MEDS ORDERED: cefTRIAXone 1 G in Water For Injection,Sterile 10 ML IV SCH (17:45)
--- NOTE | 2023-10-01 18:58 | NUR ---
REPORT TO RANDI CHRISTIANSON.
--- NOTE | 2023-10-01 20:42 | NUR ---
PT WAS ABLE TO TAKE NIGHT TIME MEDS PO WITH WATER. PT WAS GIVEN ADDITIONAL 50ML FLUID BOLUS VIA PEG TUBE AT THIS TIME WELL FOR HYDRATION.
[2023-10-01 22:43] VITALS: BP 114/73
--- NOTE | 2023-10-01 23:10 | NUR ---
50ML BOLUS THROUGH PEG TUBE
[2023-10-02] VITALS (7 sets, daily range): BP systolic 91–113; BP diastolic 59–73
[2023-10-02 05:37] LABS: HEMOGLOBIN 10.7 g/dL (12.5-16.0); MEAN CELL VOLUME 100 fl (78-100); MEAN CORPUSCULAR HEMOGLOBIN 32 pg (27-31); MEAN CORPUSCULAR HGB CONC 32 g/dL (33-37); MEAN PLATELET VOLUME 9.9 fl (7.4-10.4); PLATELET COUNT 301 K/mm3 (130-400); RED CELL DISTRIBUTION WIDTH 13.7 % (11.5-14.5); WHITE BLOOD COUNT 16.8 K/mm3 (4.8-10.8)
[2023-10-02 05:47] LABS: ALBUMIN 2.6 g/dL (3.4-4.8)
[2023-10-02 05:48] LABS: CALCIUM 8.4 mg/dL (8.3-10.5)
[2023-10-02 05:50] LABS: TOTAL PROTEIN 4.8 g/dL (6.2-8.1)
[2023-10-02 05:51] LABS: TOTAL BILIRUBIN 0.5 mg/dL (0.2-1.2)
--- NOTE | 2023-10-02 05:58 | NUR ---
50ml bolus via peg
[2023-10-02 06:10] LABS: LYMPHOCYTE 6 % (20-51); MONOCYTE 12 % (3-10); NEUTROPHILS 82 % (42-75)
[2023-10-02 06:11] LABS: OVALOCYTES 1+
--- NOTE | 2023-10-02 07:00 | NUR ---
RESUMED CARE FROM RANDI CHRISTIANSON.
[2023-10-02] MEDS ORDERED: Insulin Aspart (NovoLOG) SQ SCH ×2 (08:00→09:00)
--- NOTE | 2023-10-02 08:31 | NUR ---
[facility] HERE FOR TRANSPORT TO [facility] FOR PICC LINE PLACEMENT.
--- NOTE | 2023-10-02 11:30 | NUR ---
PATIENT RETURNED FROM [facility] WITH EMS TRANSPORT AT THIS TIME. PATIENT REPORTS 10/ PAIN TO PEG TUBE INSERTION SITE. 0ML RESIDUAL. CONTINUOUS TUBE FEED OF JEVITY 1.5 CONTINUED AT 25ML/HR. PICC LINE TO RIGHT UPPER ARM, DOUBLE LUMEN. BLOOD RETURN AND PATENT. VITAL SIGNS WNL. BLOOD GLUCOSE 89. NS STARTED THROUGH PICC LINE AT ORDERED RATE OF 125ML/HR. NEEDS MET. PATIENT REMAINS SUPINE IN BED, BED ALARMED, CALL LIGHT WITHIN REACH. PERSONAL BELONGINGS AT BEDSIDE.
[2023-10-02 11:42] LABS: MAGNESIUM 1.58 mg/dL (1.60-2.60)
--- NOTE | 2023-10-02 12:04 | NUR ---
IN TO RIGHT HAND DISCONTINUED BY MARSHAL AT [facility].
--- NOTE | 2023-10-02 17:10 | NUR ---
PATIENT TOOK MEDICATIONS PO TODAY BUT REFUSED TO DRINK POTASSIUM REQUESTING IT BE ADMINISTERED THROUGH PEG TUBE. THIS RN ASSISTED PATIENT WITH SELF ADMINISTRATION OF 20ML BEFORE AND AFTER MEDICATION FLUSH WELL MEDICATION ADMINISTRATION. PATIENT ONLY AGREEABLE TO 20ML FLUSH RATHER THAN ORDERED 30ML. PATIENT TOLERATING 25ML/HR CONTINUOUS FEEDS, REPORTING NO DISCOMFORT BUT REQUESTING TO NOT INCREASE HOURLY ADMINISTRATION UNTIL TOMORROW. NEEDS MET. PATIENT REMAINS IN BED, BED ALARMED, PERSONAL BELONGINGS WITHIN REACH, FAMILY AT BEDSIDE.
--- NOTE | 2023-10-02 19:01 | NUR ---
REPORT TO RANDI GRESHAM.
--- NOTE | 2023-10-02 20:30 | NUR ---
PT IS RESTING IN BED A&Ox4 WITH A FLAT AFFECT. PT DOES NOT MAINATAIN EYE CONTACT. PT HAS PEG TUBE IN PLACE INFUSING JEVITY AT 25 mL/Hr. DRESSING IS C/D/I AND TUBE IS PATENT. SKIN AROUND TUBE PLACEMENT IS PINK AND INTACT. PT HAD A PICC PLACED TO R UE. DUAL LUMEN AND BOTH LUMENS ARE PATENT. NS IS INFUSING AT 125 mL/Hr. PT STATES "THEY HAVE BEEN GIVING ME MEDS THROUGH MY TUBE." THIS RN ENCOURAGED PT TO TAKE HER MEDS PO SHE HAD RECEIVED THEM PO THIS AM, PER NURSE REPORT. PT SWALLOWED PILLS WHOLE WITHOUT INCIDENT. EDUCATED PT ON USE OF ESOPHAGUS A MUSCLE AND THE RISK OF DYSPHAGIA IF ESOPHAGUS WEAKENS. PT HAS MACKENZIE LE EDEMA THAT IS PITTING. HEEL CUSHION IN PLACE TO LEFT FOOT. THIS RN OFFERED TO PLACE PILLOW UNDER PT'S MACKENZIE LEs TO ELEVATE AND OFFLOAD. PT REFUSED. THERE IS A BORDERED FOAM IN PLACE TO COCCYX THAT IS PREVENTATIVE AND TO PROVIDE MORE CUSHION PT C/O PAIN TO COCCYX. PT IS ENCOURAGED TO TURN HERSELF AND REPOSITION. PT OFFERED WARM COMPRESS FOR HER EYES. PT HAS A ERYTHEMETOUS SCLERA, BUT NO PURULENT DRAINAGE FROM LEFT EYE. PT HAS CALL LIGHT IN REACH, BED IN LOW POSITION, BED ALARM ON. PT HAS NO FURTHER NEEDS.
[2023-10-02 22:38] LABS: ARSENIC URINE AMS; MERCURY URINE AMS
[2023-10-02] MEDS ORDERED: Albumin Human 50 ML IV SCH (23:30)
[2023-10-03] VITALS (7 sets, daily range): BP systolic 89–111; BP diastolic 55–72
[2023-10-03 05:31] LABS: HEMATOCRIT 28.5 % (37.0-47.0); HEMOGLOBIN 9.1 g/dL (12.5-16.0); MEAN CELL VOLUME 100 fl (78-100); MEAN CORPUSCULAR HEMOGLOBIN 32 pg (27-31); MEAN CORPUSCULAR HGB CONC 32 g/dL (33-37); MEAN PLATELET VOLUME 9.3 fl (7.4-10.4); PLATELET COUNT 291 K/mm3 (130-400); RED BLOOD COUNT 2.85 M/mm3 (4.10-5.30); RED CELL DISTRIBUTION WIDTH 13.5 % (11.5-14.5); WHITE BLOOD COUNT 11.6 K/mm3 (4.8-10.8)
[2023-10-03 05:39] LABS: ALBUMIN 2.7 g/dL (3.4-4.8)
[2023-10-03 05:41] LABS: CALCIUM 8.2 mg/dL (8.3-10.5)
[2023-10-03 05:42] LABS: TOTAL PROTEIN 4.6 g/dL (6.2-8.1)
[2023-10-03 05:44] LABS: TOTAL BILIRUBIN 0.6 mg/dL (0.2-1.2)
[2023-10-03 05:51] LABS: BAND 2 % (0-10); LYMPHOCYTE 10 % (20-51); MONOCYTE 14 % (3-10); NEUTROPHILS 73 % (42-75)
[2023-10-03 05:52] LABS: OVALOCYTES 1+; POLYCHROMASIA 1+
--- NOTE | 2023-10-03 07:00 | NUR ---
Report received from RANDI Szymanski.
--- NOTE | 2023-10-03 08:00 | NUR ---
Team meeting in room with Dr. Paris, Marie Kerns, ENGINE SPECIALIST, and myself. Discussed plan of care, current nutritional status. Lab results. Plan reviewed and encouraged patient to increase PO intake. Discussed current PEG tube feeding schedule and IVF schedule. Dr. Paris used fluorescein dye to visualize left eye and states he will have his nurse, Ashanti call Dr. Jiménez office to determine plan for tobramycin drops. Will continue to monitor.
--- NOTE | 2023-10-03 08:30 | NUR ---
Increased feeding to 30 ml/hour. Decreased IVF to 50 ml/hr. Assessment charted, PICCto DERRICK good blood return and flushes well. PEG to abd, no drainage on guaze and infusing as above. Denies needs, denies pain, alert and oriented. Discussed incentive spirometer, education provided. [facility] here to visit patient, discussed plan of care. Answered questions, denies needs, will continue to monitor.
[2023-10-03] MEDS ORDERED: DOCUSATE SODIUM 100 MG/10 ML PO SCH (09:14)
[2023-10-03 09:31] LABS: MAGNESIUM 1.65 mg/dL (1.60-2.60)
--- NOTE | 2023-10-03 17:32 | NUR ---
Pt has done well today. Up with therapy this afternoon, trying to eat a few bites of food at each meal time. Denies any pain from increased rate, currently remains at 30 ml tube feeding until 1999 tonight. IVF at 50 ml/hr. PRN pain meds given for pain to PEG site, doing well. Denies other needs, will give report to nightshift nurse who will resume care.
[2023-10-03] MEDS ORDERED: Insulin Aspart (NovoLOG) SQ SCH (18:00)
[2023-10-03] MEDS ORDERED: Multimineral/Multivitamin Oral Soln 1 DOSE/15 ML PO SCH (21:00)
[2023-10-04 01:58] VITALS: BP 102/63
[2023-10-04 05:41] VITALS: BP 120/75
[2023-10-04 10:10] VITALS: BP 126/75
[2023-10-04 13:58] VITALS: BP 108/57
[2023-10-04 17:27] VITALS: BP 132/80
--- NOTE | 2023-10-04 20:30 | NUR ---
CONTINUOUS FEEDING INCREASED TO 45ML/HR. PT DENIES PAIN WHEN ASKED. PT REFUSES TO TAKE COLACE BECAUSE OF LOOSE STOOLS. PT UP TO THE BATHROOM AT THIS TIME. PT PREFORMS HS CARES WITHOUT HELP FROM STAFF.
[2023-10-04 21:21] VITALS: BP 120/58
[2023-10-05 01:43] VITALS: BP 96/64
--- NOTE | 2023-10-05 06:13 | NUR ---
CONTINUOUS FEEDING INCREASSED TO 50ML/HR. PT DENIES PAIN OR DISCOMFORT WHEN ASKED. PT REPORTS SLEEPING WELL THROUGHOUT THE NIGHT. PT IS ASKING ABOUT WHAT FOODS SHE CAN EAT. PT STATES DR. BOLDEN STATES SHE CAN EAT WHAT EVER SHE WANTS OR CAN HANDLE. PT HAS AN ORDER FOR FULL LIQUIDS AT THIS TIME. WILL SPEAK TO ON COMING PROVIDER ABOUT PT DIET.
[2023-10-05 06:29] VITALS: BP 96/67
--- NOTE | 2023-10-05 07:30 | NUR ---
Pt in recliner when entering the room. Pt states that she would like to try some breakfast this morning. Notified that there is pancakes and angel for breakfast, pt chose to try the pancakes. Offered pt something more soft and easier to eat but pt declines and would prefer to try the pancake. Pt states that she does not have any pain at this time, reports she has been have some pain to the left side of ABD. Pt does request PRN APAP to stay ahead of pain. Medications given to pt, PO with no concerns. Pt refuses Colase due to loose stools.
--- NOTE | 2023-10-05 08:30 | NUR ---
Pt given pancakes with syrup for breakfast as requested. Nurse asked pt how her pancakes are and she reports "they look dry" then proceeds to take a pea size bite, pushes plate away and states "nope I am not eating this it does not taste good" Nurse offered pt pudding, jello, oatmeal, etc instead, pt refuses. Tray taken away per pt request. Pt asks for ice chips, which was provided at this time. Pt denies any further concerns.
[2023-10-05 10:02] VITALS: BP 96/63
--- NOTE | 2023-10-05 12:00 | NUR ---
Feeding increased to 55ml/hr
[2023-10-05 14:06] VITALS: BP 102/66
--- NOTE | 2023-10-05 17:30 | NUR ---
Pt reports pain to the left lower quad where her PEG is placed. She states it feels like "pressure" and "like someone is stabbing me" PA notified and assessed pt at bedside. PA requests that the feeding be lowered back to 40 from 55ml/hr. Feeding adjusted. Will continue to monitor.
[2023-10-05 18:41] VITALS: BP 102/60
--- NOTE | 2023-10-05 20:00 | NUR ---
PT RESTING IN RECLINER WITH HER FEET ON THE FLOOR, PT WAS ENCOURAGED TO KEEP FEET ELEVATED DUE TO SWELLING IN LOWER EXTRIMITIES. PT STATES UNDERSTAND BUT WILL NOT ALLOW NURSE TO RAISE FEET. 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 PT DENIES PAIN WHEN ASKED. DENIES ANY STOMACH DISCOMFORT WHEN ASKED. PT REPORTS SHE WILL CALL WHEN SHE IS READY TO GO TO BED. NURSE WITNESSED PT TOUCH HER PEG TUBE AND THEN RUB HER LEFT EYE THAT HAS DRAINAGE FROM IT. NURSE REMINDED PT NOT TO TOPUCH HER EYE THEN ANYTHING ELES BECAUSE SHE COULD BE CAUSE INFECTION IN ANOTHER PART OF HER BODY. OFFERED A WARM WASH CLOTH FOR PT TO CLEAN HER EYE OUT BUT SHE REFUSES.
--- NOTE | 2023-10-05 21:20 | NUR ---
IV FLUIDS STOPPED PER DR ORDERS.
--- NOTE | 2023-10-05 22:00 | NUR ---
CONTINUOUS FEED RATE INCREASED TO 45ML/HR.
[2023-10-05 22:19] VITALS: BP 105/66
[2023-10-06 02:10] VITALS: BP 129/83; BP_SYST 83
--- NOTE | 2023-10-06 05:29 | NUR ---
LAB IN TO DRAW LABS PICC LINE USED BY NURSE TO OBTAIN THE LASB SAMPLES. PT DENIES PAIN WHEN ASKED ASKED IF STOMACH HAD ANY PAIN OR NAUSEA. PT DEIES PAIN IN THE ABDOMEN. CONTINUOUS FEED WAS INCREASED TO 50ML/HR.
[2023-10-06 05:41] LABS: ALBUMIN 2.5 g/dL (3.4-4.8); TOTAL PROTEIN 4.6 g/dL (6.2-8.1)
[2023-10-06 05:42] LABS: CALCIUM 8.4 mg/dL (8.3-10.5)
[2023-10-06 05:45] LABS: TOTAL BILIRUBIN 0.3 mg/dL (0.2-1.2)
[2023-10-06 05:50] LABS: MAGNESIUM 1.9 mg/dL (1.60-2.60)
[2023-10-06 05:57] VITALS: BP 101/69
[2023-10-06 10:01] VITALS: BP 101/66
[2023-10-06 14:20] VITALS: BP 112/72
--- NOTE | 2023-10-06 14:27 | NUR ---
PATIENT ALERT AND ORIENTED X4. SHE HAS BEEN PLEASENT AND COOPERATIVE WITH CARE. SHE IS ON COUNTINOUS PEG TUBE FEEDING. SHE ALSO ATE A PORTION OF HER BREAKFAST AND LUNCH. SHE TOOK HER MEDS ORALLY THIS MORNING. SHE DENIES NAUSEA, BUT STATES SHE HAS SOME BLOATING. SHE HAS BILATERAL 2+ EDEMA IN LOWER EXTREMITIES. FEET WERE ELEVATED. PATIENT DID NEED ASSISTANCE WITH ELEVATING LEGS. SHE STATES THAT SHE HAS INTERMITTEN "THROBBING" AND "SWOOSHING" SOUND IN HER LEFT EAR. AFTER PATIENT HAD BEEN SITTING ON TOILET, STAFF REPORTED THAT IT APPEARED LIKE SHE HAD A SMALL BOWEL MOVEMENT, AND WHEN ASSISTING WITH ANDRES CARE, THERE WAS A FEW DROPS OF BLOOD DRIPPING INTO THE TOILET. AREA WAS PATTED DRY AND NO BLOOD NOTED. PATIENT DENIES HAVING HEMORRHOIDS IN THE PAST. PROVIDER LEFT MESSAGE REGARDING EAR AND NOTED BLOOD IN TOILET. PEG TUBING CHANGED AND RATE PER HR WAS INCREASED FROM 50ML TO 55ML/HR. PATIENT DENIES AND QUESTIONS OR CONCERNS AT THIS TIME. STAFF WILL CONTINUE TO MONITOR.
--- NOTE | 2023-10-06 16:56 | NUR ---
SPOKE WITH INTERIM WASHER CUTTER AT [facility], SHE WILL ASK CORPORATE FOR A PLAN EXCEPTION TO DO INTERMEDIATE SINCE HER HEALTH PLAN DOES NOT INCLUDE THIS. ADVISED SHE WOULD NOT BE ABLE TO COMPLETE 3 HOURS OF DAILY THERAPY. SHE WOULD BE ABLE TO COMPLETE AT LEAST ONE HOUR DAILY IF BROKEN UP TIME. FEEDING TUBE AND SUCH WELL.
[2023-10-06 17:46] VITALS: BP 104/60
--- NOTE | 2023-10-06 17:48 | NUR ---
PATIENT HAD COMPLAINTS OF NAUSEA. ZOFRAN GIVEN @8184. PATIENT REFUSED SUPPER AND 1700 MEDS. SHE HAD COMPLAINTS OF FELLING WARM. TEMP WAS CHECKED 98.7. WHILE IN THE RESTROOM SHE HAD MORE BLOOD AND SMALL AMOUNT IN STOOL ER PROVIDER CAME IN AND CHECKED PATIENT. STATED SHE HAD A EXTERNAL HEMORRHOID AND ORDERED TUCK PADS THREE TIMES A DAY. PATIENT CLEANED UP AND ASSISTED INTO BED. SHE REQUESTED TYLENOL. STAFF WILL CONT TO MONITOR. IT WAS ALSO NOTICED THAT SHE HAS AN AREA IN THE BUTTUCKS WHERE THERE APPEARS TO BE SOME SKIN BREAKDOWN. BARRIER CREAM APPLIED. WHEN PATIENT IS READY, MEPILEX WILL BE APPLIED OVER THAT AREA.
[2023-10-06] MEDS ORDERED: Witch Hazel 50% Pads Bulk TUB TP PRN ×2 (18:30)
--- NOTE | 2023-10-06 18:53 | NUR ---
recieved report from dorota diez
--- NOTE | 2023-10-06 22:11 | NUR ---
patient alert and oriented, patient resting in bed medications delivered whole with no complications, patient assisted to bathroom by this nurse, ambulated well. patient has 1 inch open skin area on sacral area, mepilex placed by this nurse after cleaning the area. Both lumens on picc line flushed. Patient currently resting in bed with call light in reach.
[2023-10-06 22:23] VITALS: BP 109/66
[2023-10-07 01:56] VITALS: BP 96/60
[2023-10-07 05:36] VITALS: BP 111/72
--- NOTE | 2023-10-07 06:43 | NUR ---
report given to dorota diez
[2023-10-07 10:20] VITALS: BP 91/60
[2023-10-07 14:32] VITALS: BP 131/49
--- NOTE | 2023-10-07 16:35 | NUR ---
PATIENT HAS BEEN COOPERATIVE WITH CARE. PEG TUBE TUBING CHANGED. PATIENT APPEARS TO BE TOLERATING THE 55ML/HR RATE. NO BLEEDING NOTED FROM HEMORRHOIDS THIS DAY. SHE DID HAVE A LOOSE STOOL THIS MORNING. SHE HAS ATE A SMALL AMOUNT OF HER BREAKFAST AND LUNCH. SHE CONTINUES TO HAVE SOME TENDERNESS AT PEG TUBE SITE. SHE IS MOVING AROUND MORE AND IS NOT GAURDED AT PEG TUBE SITE. SHE HAS A SORE ON HER BUTTOCKS. MEPILEX WAS PLACED OVER AREA. NURSING ORDERS ARE IN TO CHANGE DRESSING DAILY AND USE SKIN PREP. SHE IS CURRENTLY SITTING IN ROOM WATCHING TV. SHE HAS NOT HAD COMPLAINTS OF NAUSEA THIS DAY THUS FAR. STAFF WILL CONT. TO MONITOR.
[2023-10-07 18:09] VITALS: BP 95/62
--- NOTE | 2023-10-07 19:10 | NUR ---
Report received from Dorota BRYAN. Patient resting supine in bed with HOB elevated 35 degrees. Eyes closed, respirations even and non-labored, no signs of pain/distress. Tube feeding infusing Jevity 1.5 at 55 ML/HR. Site patent. Bed alarm on. Call light in reach.
--- NOTE | 2023-10-07 21:04 | NUR ---
Up to BR with SBA and walker. Gait steady. Rates pain to PEG insertion site 02/09. Tylenol taken whole with other PO medications. Requests that liquid vitamin be changed to pill form due to taste. Took in cranberry juice at this time. Peg tube site cleansed with NS, patted dry and new drain sponge applied. Area without redness. Some thick drainage noted. No odor. Assessment completed. HOB elevated 30 degrees.
[2023-10-07] MEDS ORDERED: Docusate Sodium 100 MG CAP PO PRN (21:30)
[2023-10-07 22:07] VITALS: BP 100/64
[2023-10-08 02:44] VITALS: BP 100/63
--- NOTE | 2023-10-08 03:13 | NUR ---
Patient has been resting quietly with eyes closed. Respirations even and non-labored. TELE in place NSR. Jevity 1.5 continues to infuse via Kangaroo pump at 55 ML/HR. Tolerating well. HOB elevated 35 degrees. Bed alarm on. Call light in reach.
--- NOTE | 2023-10-08 05:41 | NUR ---
Up to BR with SBA and walker. Requests and given Tylenol for PEG insertion site pain 11/09. Scheduled protonix taken. Takes pills whole without difficulty. Mepilex to L buttock off, replaced at this time.
[2023-10-08 05:49] VITALS: BP 131/76
--- NOTE | 2023-10-08 07:06 | NUR ---
Report to Marie BRYAN.
[2023-10-08] MEDS ORDERED: Multivitamin TAB PO SCH (09:00)
[2023-10-09 14:10] VITALS: BP 97/57
[2023-10-09 17:56] VITALS: BP 103/69
--- NOTE | 2023-10-09 20:16 | NUR ---
Report received from Estiven BRYAN. Patient resting supine in bed with eyes closed. Awakens easily with verbal stimuli. A/O x4. Rates pain 5/10 to PEG site but denies need for analgesic. Refused bolus feeding, states "its too late at night" States she would like her feedings to be at 09,13,17. Advised patient these time set by car ferrier but will notify provider. Assessment completed. Takes PO medications whole without difficulty. PICC line to DERRICK flushed easily with 10 ML of NS x2 and with good blood return x2 lumens. PEG tube drain sponge CDI. Denies questions, wants or needs at this time. Bed alarm on. Call light in reach.
--- NOTE | 2023-10-09 21:13 | NUR ---
Order received and times of bolus feedings changed to 02.12,17 per patient preference.
[2023-10-09 22:08] VITALS: BP 102/66
[2023-10-10] VITALS (8 sets, daily range): BP systolic 87–106; BP diastolic 50–69
--- NOTE | 2023-10-10 00:46 | NUR ---
Blood sugar 80 MG/Dl. Requested and given cranberry juice.
--- NOTE | 2023-10-10 06:23 | NUR ---
Rested well through the night. Up to BR PRN with SBA. Has denied need for analgesic this shift.
--- NOTE | 2023-10-10 06:57 | NUR ---
Report to Marie BRYAN.
[2023-10-10 08:30] LABS: ALBUMIN 2.7 g/dL (3.4-4.8)
[2023-10-10 08:32] LABS: CALCIUM 8.8 mg/dL (8.3-10.5)
[2023-10-10 08:33] LABS: TOTAL PROTEIN 5.6 g/dL (6.2-8.1)
[2023-10-10 08:35] LABS: TOTAL BILIRUBIN 0.3 mg/dL (0.2-1.2)
[2023-10-10 08:40] LABS: MAGNESIUM 2.37 mg/dL (1.60-2.60)
[2023-10-10 08:54] LABS: BASO # 0.02 K/mm3 (0.02-0.10); EOS # 0.11 K/mm3 (0.04-0.40); HEMATOCRIT 30.4 % (37.0-47.0); HEMOGLOBIN 9.8 g/dL (12.5-16.0); LYMPH# 2.16 K/mm3 (1.50-4.00); MEAN CELL VOLUME 99 fl (78-100); MEAN CORPUSCULAR HEMOGLOBIN 32 pg (27-31); MEAN CORPUSCULAR HGB CONC 32 g/dL (33-37); MEAN PLATELET VOLUME 8.6 fl (7.4-10.4); MONO # 0.61 K/mm3 (0.20-0.80); NEU # 7.66 K/mm3 (1.40-6.50); PLATELET COUNT 660 K/mm3 (130-400); RED BLOOD COUNT 3.06 M/mm3 (4.10-5.30); RED CELL DISTRIBUTION WIDTH 13.7 % (11.5-14.5); WHITE BLOOD COUNT 10.6 K/mm3 (4.8-10.8)
[2023-10-10] MEDS ORDERED: Potassium Bicarbonate/Citrate 20 MEQ Effervescent TAB PO SCH (10:00)
--- NOTE | 2023-10-10 19:18 | NUR ---
recieved report from Marie diez
--- NOTE | 2023-10-10 23:27 | NUR ---
patient alert and oriented and resting in bed, patient denies any pain at this time. Patient assisted to bathroom by this nurse using gait belt and walker, patient ambulated well. medications delivered whole without complication, patient returned to bed by PCT, patient resting in bed with call light in reach and bed alarmed. Patient denied any further needs or concerns at this time
[2023-10-11 01:24] VITALS: BP 111/72
[2023-10-11 05:39] VITALS: BP 93/57
--- NOTE | 2023-10-11 06:59 | NUR ---
report given to Jennifer Oliveros
[2023-10-11] MEDS ORDERED: Escitalopram 10 MG TAB PO SCH (09:00)
[2023-10-11 09:57] VITALS: BP 117/56
[2023-10-11 13:22] VITALS: BP 100/69
[2023-10-11 17:04] VITALS: BP 110/72
--- NOTE | 2023-10-11 19:05 | NUR ---
RECEIVED REPORT FROM RANDI MARMOLEJO
--- NOTE | 2023-10-11 21:00 | NUR ---
PATIENT HAS BEEN UP TO TOILET WITH ONE SBA. DENIES PAIN OR DISCOMFORT AT THIS TIME. EENT CLEAR, LUNGS CTA. HR REGULAR, NO EDEMA NOTED. BS X 4, REPORT NO DIFFICULTY WITH URINATING OR HAVING BMS. PATIENT APPROX 10% OF EVENING MEAL PO. PATIENT IS DOING HER OWN FEEDINGS PER PEG TUBE. DENIES NAUSEA AT THIS TIME. PATIENT REFUSED TOBRAMYCIN EYE GTTS, STATING THAT SHE IS NO LONGER TAKING THEM. CALL LIGHT IN REACH
[2023-10-11 22:00] VITALS: BP 105/65
--- NOTE | 2023-10-12 00:21 | NUR ---
PATIENT RESTING QUIETLY IN BED, BREATHING UNLABORED ON RA. CALL LIGHT IN REACH
[2023-10-12 02:05] VITALS: BP 103/59
--- NOTE | 2023-10-12 02:17 | NUR ---
PATIENT RESTING QUIETLY IN BED, BREATHING UNLABORED. CALL LIGHT IN REACH
[2023-10-12 05:33] VITALS: BP 108/63
--- NOTE | 2023-10-12 06:38 | NUR ---
PATIENT RESTING IN BED, EYES CLOSED. WAKES EASILY TO VERBAL STIMULI. MEDS TAKEN WITHOUT ISSUE. DENIES PAIN OR DISCOMFORT. CALL LIGHT IN REACH
--- NOTE | 2023-10-12 07:35 | NUR ---
Report recieved and care assumed. Pt resting in bed with no needs or concerns at this time. Call light in reach.
[2023-10-12 09:23] VITALS: BP 97/63
--- NOTE | 2023-10-12 10:00 | NUR ---
Pt completed PEG tube feeding of one container of Jevity 1.5. Denies any needs or concerns at this time. Pt resting in chair, call light in reach.
--- NOTE | 2023-10-12 11:06 | NUR ---
PT REQUESTS EYEDROPS BE DISCONTINUED AT THIS TIME. EYEDROPS REMOVED FROM REFRIDGERATOR AND SENT HOME WITH SISTER.
--- NOTE | 2023-10-12 12:30 | NUR ---
Pt requests to wait a little while to eat. Pt now resting in bed with eyes closed and no signs of distress or discomfort noted at this time. Call light in reach.
--- NOTE | 2023-10-12 13:06 | NUR ---
Report given to Marleny Kerr RN and care transferred.
[2023-10-12 14:03] VITALS: BP 115/73
[2023-10-12 17:05] VITALS: BP 116/75
--- NOTE | 2023-10-12 18:53 | NUR ---
REPORT RECEIVED FROM RANDI THAPA
--- NOTE | 2023-10-12 20:44 | NUR ---
PATIENT IS A&O X 4. SLEEPING ON ASSESS, WAKES EASILY TO VERBAL STIMULI. EENT CLEAR. LUNGS CTA. HR REG, NO EDEMA NOTED. BS X 4, REPORTS NO ISSUES WITH URINE OR BM. TAKES MEDS PO WITTHOUT ISSUE. DOES HER OWN FEEDINGS PER PEG TUBE, GAUZE TO PEG IS CDI. ON FLUSH OF PICC LINE, BLOOD RETURN NOT IMMEDIATE, BUT WITH A MODERATE SCRUB, AND POSITION ADJUSTMENT, BLOOD RETURN OBTAINED. PATIENT DENIES PAIN. CALL LIGHT IN REACH
[2023-10-12 22:00] VITALS: BP 107/69
--- NOTE | 2023-10-13 01:20 | NUR ---
PATIENT RESTING QUIETLY IN BED WITH EYES CLOSED. BREATHING UNLABORED ON RA. CALL LIGHT IN REACH
[2023-10-13 01:56] VITALS: BP 103/67
--- NOTE | 2023-10-13 02:07 | NUR ---
PATIENT RESTING QUIETLY EYES CLOSED. BREATHING UNLABORED. WAKES EASILY WITH VERBAL STIMULI. CALL LIGHT IN REACH
[2023-10-13 05:26] VITALS: BP 98/62
[2023-10-13 07:30] LABS: SODIUM 137 mmol/L (136-145)
[2023-10-13 07:32] LABS: ALBUMIN 2.7 g/dL (3.4-4.8); GLUCOSE 87 mg/dL (65-105); TOTAL PROTEIN 5.6 g/dL (6.2-8.1)
[2023-10-13 07:33] LABS: CALCIUM 8.7 mg/dL (8.3-10.5)
[2023-10-13 07:34] LABS: TOTAL BILIRUBIN 0.3 mg/dL (0.2-1.2)
[2023-10-13 07:36] LABS: CARBON DIOXIDE 28 mmol/L (23-31)
[2023-10-13 07:40] LABS: AST-SGOT 16 U/L (5-34)
[2023-10-13 07:41] LABS: MAGNESIUM 2.21 mg/dL (1.60-2.60)
[2023-10-13 07:43] LABS: ALT/SGPT < 6 U/L (0-55)
[2023-10-13 10:02] VITALS: BP 112/69
--- NOTE | 2023-10-13 11:05 | NUR ---
Spoke with Poly Liz with [facility]. They state Darby is too high functioning for IPR. They recommend Outpatient PT/OT
--- NOTE | 2023-10-13 13:59 | NUR ---
DHARMESH CALLED DUE TO RESIDUAL OF 50 ML AND SHE STATES " THAT IS PERFECTLY FINE SHE CAN CONTINUE THE NEXT FEEDING." PT UPDATED ON FEEDINGS.
[2023-10-13 14:21] VITALS: BP 108/71
[2023-10-13 17:44] VITALS: BP 110/72
--- NOTE | 2023-10-13 18:13 | NUR ---
PT ASKING WHEN SHE WILL BE DISCHARGED. UPDATED THIS IS DEPENDENT ON POTASSIUM. SHE IS SCHEDULED FOR SURGERY IN [facility] ON HER BACK AND HAS A TELE VIDEO WITH HIM TOMORROW. SHE IS CONCERNED HER SURGERY WILL BE CANCELED DUE TO POTASSSIUM. SHE AMBULATES WITH WALKER HERE BUT SPOUSE REPORTS SHE DOES NOT USE ONE AT HOME.
--- NOTE | 2023-10-13 19:25 | NUR ---
REPORT FROM RANDI ASH. PATIENT RESTING IN BED, EYES CLOSED. BREATHING UNLABORED ON RA.
[2023-10-13 22:35] VITALS: BP 110/70
[2023-10-14 02:11] VITALS: BP 101/66
--- NOTE | 2023-10-14 03:23 | NUR ---
PATIENT A&O X 4. UP TO AND FROM TOILET. SACRAL DRESSING CDI. PATIENT STATES SHE HAD SOME TOMATO SOUP WELL EVENING PEG FEEDING. PICC LINE FLUSHING WITH BLOOD RETURN TO BOTH PORTS. RESTING QUIETLY WITH EYES CLOSED. BREATHING UNLABORED ON ROOM AIR. CALL LIGHT IN REACH
[2023-10-14 05:41] VITALS: BP 101/65
[2023-10-14 09:43] VITALS: BP 96/52
[2023-10-14 14:25] VITALS: BP 98/62
--- NOTE | 2023-11-10 17:12 | NUR ---
DOWNTIME NOTE: An Electronic Health Record (EHR) downtime event occurred during this patient's care. For legal medical record information generated during the downtime period, please reference the patient's legal medical record. Paper or scanned documentation has been incorporated into the legal medical record which is maintained in accordance with Health Information Management (HIM) and record retention policies.
== END 2023-10-14 16:00 | disposition home or self-care (01) | DRG 641 ==
LOC: MED/SURG 12:15
PROVIDERS: Family Medicine; Nurse Practitioner; Physician Assistant; ADMIT Family Medicine
PROC: 0DH68UZ Insertion of Feeding Device into Stomach, Via Natural or Artificial Opening Endoscopic (ICD-10-PCS; principal; 2023-09-25)
DX: E43 Unspecified severe protein-calorie malnutrition (principal); E87.29 Other acidosis; Z68.1 Body mass index [BMI] 19.9 or less, adult; E86.0 Dehydration; E87.6 Hypokalemia; R47.02 Dysphasia; K21.9 Gastro-esophageal reflux disease without esophagitis; F32.A Depression, unspecified
CPT/HCPCS: 00731; C9113; J0696; J0834; J2405; J2704; J3411; J3480; J7030; J7040; J7042; J7120; P9047; Q9967

== ENCOUNTER → 2023-11-17 | Outpatient (CLI) | payer OTHER ==
[~2023-11-17] MED LIST changes: +LASIX20 M1 PO; +LEXAPRO 10MG10 MG PO; +MIRTAZAPINE7.5 M1 PO; +NEURONTIN300 M1 PO; +TOBRAMYCIN 5 ML5 ML OP; +[UNRECOGNIZED DRUG - OTHER] OP
[2023-11-17 11:07] LABS: BASO # 0.02 K/mm3 (0.02-0.10); EOS # 0.15 K/mm3 (0.04-0.40); EOS % 2.3 % (1.0-5.0); HEMATOCRIT 41.4 % (37.0-47.0); HEMOGLOBIN 13.1 g/dL (12.5-16.0); LYMPH# 2.07 K/mm3 (1.50-4.00); MEAN CELL VOLUME 99 fl (78-100); MEAN CORPUSCULAR HEMOGLOBIN 31 pg (27-31); MEAN CORPUSCULAR HGB CONC 32 g/dL (33-37); MEAN PLATELET VOLUME 10.3 fl (7.4-10.4); MONO # 0.44 K/mm3 (0.20-0.80); NEU # 3.91 K/mm3 (1.40-6.50); PLATELET COUNT 319 K/mm3 (130-400); RED BLOOD COUNT 4.17 M/mm3 (4.10-5.30); RED CELL DISTRIBUTION WIDTH 13.2 % (11.5-14.5); WHITE BLOOD COUNT 6.6 K/mm3 (4.8-10.8)
[2023-11-17 11:13] LABS: ALBUMIN 3.9 g/dL (3.4-4.8)
[2023-11-17 11:14] LABS: CALCIUM 9.5 mg/dL (8.3-10.5)
[2023-11-17 11:17] LABS: TOTAL BILIRUBIN 0.4 mg/dL (0.2-1.2)
== END ==
LOC: LAB 10:50
PROVIDERS: Family Medicine
DX: E78.2 Mixed hyperlipidemia (principal); D50.9 Iron deficiency anemia, unspecified; R62.7 Adult failure to thrive